=== PATIENT | male | born 1955 | race Caucasian/White ===

== ENCOUNTER → 2017-01-02 | Outpatient (CLI) | payer OTHER | LOC: KOH-I 12-27 09:01 | DX: R10.31 Right lower quadrant pain (principal); R10.11 Right upper quadrant pain; Z88.5 Allergy status to narcotic agent; Z88.1 Allergy status to other antibiotic agents; Z88.8 Allergy status to other drugs, medicaments and biological substances | CPT/HCPCS: 76700 ==

== ENCOUNTER → 2017-01-10 | Outpatient (CLI) | payer OTHER ==
[2017-01-10 10:48] LABS: HEMOGLOBIN 14.1 gm/dl (14.0-17.5); RED BLOOD COUNT 5.01 M/UL (4.20-5.50); WHITE BLOOD COUNT 7.2 K/UL (4.5-11.0)
[2017-01-10 11:12] LABS: BUN/CREATININE RATIO 17 (0-10)
== END ==
LOC: LAB 09:38
PROVIDERS: Internal Medicine
DX: Z00.00 Encounter for general adult medical examination without abnormal findings (principal); I10 Essential (primary) hypertension; M10.9 Gout, unspecified; M19.90 Unspecified osteoarthritis, unspecified site; R10.31 Right lower quadrant pain; E78.5 Hyperlipidemia, unspecified; Z82.61 Family history of arthritis
CPT/HCPCS: 36415; 80053; 80061; 82150; 83690; 84439; 84443; 84550; 85027; 86039; 86200; 86431

== ENCOUNTER → 2017-02-06 | Outpatient (CLI) | payer OTHER | LOC: CT 02-03 14:00 | DX: R10.11 Right upper quadrant pain (principal); R16.0 Hepatomegaly, not elsewhere classified; K76.89 Other specified diseases of liver | CPT/HCPCS: J7050; Q9962 ==

== ENCOUNTER 2021-11-15 14:26 | Emergency (ER) | payer MEDICARE, OTHER ==
[~2021-11-15 14:26] MED LIST: ALLEGRA ALLERGY60 MG PO; AMLODIPINE BESYL5 MG PO; ANTIVERT 25MG T25 MG PO; AUGMENTIN 875-1 EACH PO; COLACE100 MG PO; FLOMAX0.4 MG PO; HYDROCODON-ACE1 EAC4 PO; LISINOPRIL40 MG PO; NORVASC 5 MG TAB5 MG PO; PROSCAR5 MG PO; ZESTRIL40 MG PO; ZOFRAN4 MG PO
[2021-11-15 15:17] LABS: HEMOGLOBIN 14.9 gm/dl (14.0-17.5); RED BLOOD COUNT 5.21 M/UL (4.20-5.50); WHITE BLOOD COUNT 6.2 K/UL (4.5-11.0)
[2021-11-15 15:48] LABS: BUN/CREATININE RATIO 10 (0-10)
[2021-11-15] MEDS ORDERED: CLONIDINE HCL0.2 MG PO (17:17)
== END 2021-11-15 17:31 | disposition home or self-care (01) ==
LOC: ER1 14:26
PROVIDERS: Preventive Medicine Occupational Medicine
DX: I10 Essential (primary) hypertension (principal); Z91.14 Patient's other noncompliance with medication regimen; Z79.82 Long term (current) use of aspirin
CPT/HCPCS: 51702; 71045; 80048; 81001; 82550; 82553; 83874; 83880; 84484; 85025; 87086; 93005; 96374; 99284; J1940

== ENCOUNTER → 2021-12-27 | Outpatient (CLI) | payer MEDICARE, OTHER ==
[~2021-12-27] MED LIST changes: +CLONIDINE HCL0.2 MG PO
== END ==
LOC: EXRD 11:09
DX: R20.0 Anesthesia of skin (principal); M47.816 Spondylosis without myelopathy or radiculopathy, lumbar region
CPT/HCPCS: 72110

== ENCOUNTER 2022-02-15 20:11 | Inpatient (IN) | payer MEDICARE, OTHER ==
[~2022-02-15] VITALS: Ht 172.7 cm; Wt 87.5 kg
[2022-02-15 22:41] LABS: HEMOGLOBIN 16.4 gm/dl (14.0-17.5); RED BLOOD COUNT 5.52 M/UL (4.20-5.50); WHITE BLOOD COUNT 14.5 K/UL (4.5-11.0)
[2022-02-15 23:00] LABS: BUN/CREATININE RATIO 19 (0-10)
[2022-02-16] MEDS ORDERED: AMLODIPINE BESY10 MG PO (08:42)
[2022-02-16] MEDS ORDERED: COZAAR50 MG PO (08:42)
[2022-02-16] MEDS ORDERED: NEURONTIN300 MG PO (08:42)
[2022-02-16] MEDS ORDERED: COLCHICINE 0.60.6 MG PO (08:43)
[2022-02-16] MEDS ORDERED: ZYLOPRIM 300 M300 MG PO (08:43)
[2022-02-16] MEDS ORDERED: DRISDOL1250 MCG PO (08:44)
[2022-02-16] MEDS ORDERED: FINASTERIDE5 MG PO (08:45)
[2022-02-16] MEDS ORDERED: FLOMAX 0.4 MG0.4 MG PO (08:46)
[2022-02-16] MEDS ORDERED: FLONASE 0.05% N16 GM INH (08:47)
== END 2022-02-17 10:17 | disposition home or self-care (01) | DRG 390 ==
LOC: ER1 20:11 → CDU 02-16 00:26 → M/S 02-16 00:26
PROVIDERS: Physician Assistant; ADMIT Surgery
DX: K56.699 Other intestinal obstruction unspecified as to partial versus complete obstruction (principal); I10 Essential (primary) hypertension; F17.210 Nicotine dependence, cigarettes, uncomplicated; Z20.822 Contact with and (suspected) exposure to COVID-19; Z87.19 Personal history of other diseases of the digestive system
CPT/HCPCS: 43752; 80053; 81001; 82550; 82553; 84484; 85025; 93005; 96374; 96375; 96376; 99285; J2270; J2405; Q9967; U0002

== ENCOUNTER → 2022-04-18 | Outpatient (CLI) | payer MEDICARE, OTHER ==
[~2022-04-18] MED LIST changes: +AMLODIPINE BESY10 MG PO; +COLCHICINE 0.60.6 MG PO; +COZAAR50 MG PO; +DRISDOL1250 MCG PO; +FINASTERIDE5 MG PO; +FLOMAX 0.4 MG0.4 MG PO; +FLONASE 0.05% N16 GM INH; +NEURONTIN300 MG PO; +ZYLOPRIM 300 M300 MG PO
== END ==
LOC: KOH-I 10:07
DX: R10.11 Right upper quadrant pain (principal); N28.1 Cyst of kidney, acquired
CPT/HCPCS: 76700

== ENCOUNTER → 2022-05-08 | Day surgery (SDC) | payer MEDICARE, OTHER | END | disposition home or self-care (01) | LOC: OR 06:14 | DX: Z12.11 Encounter for screening for malignant neoplasm of colon (principal); K57.30 Diverticulosis of large intestine without perforation or abscess without bleeding; K64.1 Second degree hemorrhoids; I10 Essential (primary) hypertension; M10.9 Gout, unspecified; E78.00 Pure hypercholesterolemia, unspecified; E66.8 Other obesity; Z68.30 Body mass index [BMI] 30.0-30.9, adult | CPT/HCPCS: J2704; J7040 ==